=== PATIENT | male | born 1945 | race Caucasian/White ===

== ENCOUNTER 2022-07-02 19:31 | Emergency (ER) | payer MEDICARE, BC ==
[~2022-07-02 19:31] MED LIST: ALEVE220 M1 PO; PNEUMOVAX 23 IM
[2022-07-03 00:02] VITALS: BP 00/00
== END 2022-07-02 22:40 | disposition expired ==
LOC: ED 19:31
PROC: 5A12012 Performance of Cardiac Output, Single, Manual (ICD-10-PCS; principal; 2022-07-02)
DX: I46.9 Cardiac arrest, cause unspecified (principal)